=== PATIENT | male | born 1960 | race Caucasian/White ===

== ENCOUNTER 2016-11-18 09:32 | Emergency (ER) | payer OTHER ==
[~2016-11-18] VITALS: Ht 177.8 cm; Wt 99.8 kg
[~2016-11-18 09:32] MED LIST: ACET-1574 PO; ARMO150T2 PO; ASPI-482 PO; AZIT500T2 PO; CALC625T7 PO; CYCL10TA2 PO; DULO60CA6 PO; ESZO3TAB9 PO; EZET1TAB5 PO; FLUT16SP2 NS; GABA800T2 PO; GUAI1TBM PO; HYDR-2762 PO; LEVO250T25 PO; LISD70CA3 PO; MELA3TAB PO; METF500T4 PO; MONT10TA6 PO; MULT-18 PO; NAPR250T2 PO; OMEG500C3 PO; OMEP20TA PO; POLY17PO5 PO; PSYL3.4P PO; SUCR1TAB29 PO; TRAZ50TA15 PO; VENTOLIN HFA18 GM IH; VENTOLIN HFA18 GM INH; ZOLP10TA PO; [UNRECOGNIZED DRUG - CODE] PO
--- NOTE | 2016-11-18 09:54 | EKG ---
[facility] [address] [place] [address] Test Date: 2016-11-18 Test Time: 09:44:57 Pat Name: MYLA RAMIREZ Department: Room: Gender: M Public Health Inspector: : 1960 Requested By: Grecia GUERRERO Order Number: [id number] Reading MD: Ana Davalos Measurements Intervals [place] Rate: 85 P: -13 NE: 184 QRS: -20 QRSD: 90 T: 31 QT: 342 QTc: 407 Interpretive Statements SINUS RHYTHM LEFTWARD AXIS RI6.01 Unconfirmed report Compared to ECG 06/24/2016 11:44:48 Left-axis deviation now present Electronically Signed On 11-22-2016 19:46:25 CASH SURRENDER CALCULATOR by Ana Davalos
[2016-11-18] MEDS ORDERED: KETOROLAC 15 MG/ML VIAL. IV ONE (10:00)
[2016-11-18 10:11] LABS: CALCIUM 8.8 mg/dL (8.5-10.1); CREATININE 1.2 mg/dL (0.7-1.3); GFR 62.2; POTASSIUM 3.8 mmol/L (3.5-5.1)
--- NOTE | 2016-11-18 10:17 | RAD ---
Chest, 2 views, 11/18/2016: History: Cough, chest pain Comparison is made to a study from 06/24/2016. The heart size and pulmonary vascularity are normal. No pulmonary infiltrates are seen. There is no evidence of pleural fluid. IMPRESSION: No acute cardiopulmonary abnormality is detected.
[2016-11-18 10:31] VITALS: BP 123/76
--- NOTE | 2016-11-18 10:37 | PHYS DOC ---
Past Medical History Past Medical History: Diabetes-Type II, Diverticulosis, GERD, High Cholesterol , Other Additional Past Medical Histor: sinus, poss. adrenal problem, neuropathy; gastroparesis; hirschsprungs Past Surgical History: Other Additional Past Surgical Histo: ACL repair Rt knee, lumbar and cervical fusions , megacolon repair Alcohol Use: Occasionally Drug Use: None Adult General Chief Complaint Chief Complaint: CHEST PAIN HPI HPI Patient is a 56 year old male who presents with left upper anterior chest pain that has developed over the past week. Pain is constant over the past 2 days. Has pain with cough and breathing. Has rhinorrhea, nasal congestion, chills, and dry cough for the past week. He denies measured fever, diarrhea, current n/v , headache, sore throat, diaphoresis, exertional symptoms, orthopnea, leg pain or swelling, hemoptysis. Review of Systems Review of Systems Constitutional: Denies measured fever [] Eyes: Denies change in visual acuity, redness, or eye pain [] HENT: Denies nasal congestion or sore throat [] Respiratory: Denies shortness of breath [] Cardiovascular: No additional information not addressed in HPI [] GI: Denies abdominal pain, nausea, vomiting, bloody stools or diarrhea [] : Denies dysuria or hematuria [] Musculoskeletal: Denies back pain or joint pain [] Integument: Denies rash or skin lesions [] Neurologic: Denies headache, focal weakness or sensory changes [] Endocrine: Denies polyuria or polydipsia [] Current Medications Current Medications Current Medications Medications (Trade) Dose Ordered Sig/Tremaine Start Time Stop Time Status Last Admin Dose Admin Ketorolac Tromethamine (Toradol) 15 mg 1X ONCE 11/18/16 10:00 11/18/16 10:01 DC 11/18/16 10:34 15 MG Allergies Allergies Allergies Coded Allergies Type Severity Reaction Last Updated Verified No Known Drug Allergies 08/31/14 No Physical Exam Physical Exam Constitutional: Well developed, well nourished, no acute distress, non-toxic appearance. [] HENT: Normocephalic, atraumatic, bilateral external ears normal, oropharynx moist, nose normal. [] Eyes: PERRLA, EOMI, conjunctiva normal, no discharge. [] Neck: Normal range of motion, supple, no stridor. [] Cardiovascular:Heart rate regular rhythm [] Lungs & Thorax: Bilateral breath sounds clear to auscultation. Left upper chest wall tenderness duplicating symptoms without visual or palpable abnormality [] Abdomen: Bowel sounds normal, soft, no tenderness. [] Skin: Warm, dry, no erythema, no rash. [] Back: Normal ROM. [] Extremities: ROM intact, no edema. [] Neurologic: Alert and oriented X 3, normal motor function, normal sensory function, no focal deficits noted. [] Psychologic: Affect normal, judgement normal, mood normal. [] Current Patient Data Vital Signs Vital Signs Date Time Temp Pulse Resp B/P Pulse Ox O2 Delivery O2 Flow Rate FiO2 11/18/16 10:31 82 18 123/76 93 Room Air 11/18/16 09:40 98.3 98.3 Lab Values Laboratory Tests Test 11/18/16 09:50 Sodium Level 142mmol/L (136-145) Potassium Level 3.8mmol/L (3.5-5.1) Chloride Level 105mmol/L (98-107) Carbon Dioxide Level 27mmol/L (21-32) Anion Gap 10 (6-14) Blood Urea Nitrogen 15mg/dL (8-26) Creatinine 1.2mg/dL (0.7-1.3) Estimated GFR (Cockcroft-Gault) 62.2 Glucose Level 122mg/dL (70-99) H Calcium Level 8.8mg/dL (8.5-10.1) Troponin I Quantitative < 0.017ng/mL (0.000-0.055) Laboratory Tests 11/18/16 09:50 EKG EKG EKG as interpreted by me as normal sinus rhythm, rate 85, no ST-T changes, normal intervals, no ectopy Radiology/Procedures Radiology/Procedures Chest xray as interpreted by me with no acute cardiopulmonary disease process Course & Med Decision Making Course & Med Decision Making Pertinent Labs and Imaging studies reviewed. (See chart for details) Workup is unremarkable. Suspect MSK/chest wall pain in the setting of URI. Return precautions given. He understands and agrees with plan. Dragon Disclaimer Dragon Disclaimer This electronic medical record was generated, in whole or in part, using a voice recognition dictation system. Departure Departure Impression: Primary Impression: Chest pain Additional Impression: Upper respiratory infection Disposition: 01 HOME, SELF-CARE Condition: STABLE Referrals: EDIN MORALES (PCP) Patient Instructions: Upper Respiratory Infection, Adult, Neek-pm-Tmkg Additional Instructions: Take ibuprofen to help with chest pain. Use honey to help with cough. Follow-up with your primary care doctor. Return for any concerns. Problem Qualifiers Primary Impression: Chest pain Chest pain type: other chest pain Qualified Code: R07.89 - Other chest pain Additional Impression: Upper respiratory infection URI type: unspecified viral URI Qualified Code: J06.9 - Acute upper respiratory infection, unspecified Grecia GUERRERO MD Nov 18, 2016 10:37
== END 2016-11-18 10:54 | disposition home or self-care (01) ==
LOC: ER 09:32
DX: R07.89 Other chest pain (principal); J06.9 Acute upper respiratory infection, unspecified; E78.00 Pure hypercholesterolemia, unspecified; E11.43 Type 2 diabetes mellitus with diabetic autonomic (poly)neuropathy; K31.84 Gastroparesis; K21.9 Gastro-esophageal reflux disease without esophagitis; Z87.19 Personal history of other diseases of the digestive system; Z98.890 Other specified postprocedural states
CPT/HCPCS: 36415; 71020; 80048; 84484; 93005; 96374; 99285; J1885

== ENCOUNTER → 2017-02-05 | Outpatient (CLI) | payer OTHER ==
[~2017-02-05] MED LIST changes: +POLY17PO29 PO; -POLY17PO5 PO
--- NOTE | 2017-02-05 13:30 | KCIC ---
PROCEDURE Renal ultrasound HISTORY Stage III chronic renal disease. Bilateral flank pain, right greater than left. COMPARISON None FINDINGS Aorta and inferior vena cava are not visualized due to overlying bowel gas. Right kidney measures 11.6 cm longitudinal. Exophytic midpole cyst measures 3.5 cm diameter. Additional cyst near the renal pelvis measures 2.5 cm long axis. Left kidney measures 11.3 cm longitudinal. Cyst identified at the midpole, measures 20 mm. No evidence of hydronephrosis. Limited urinary bladder evaluation, as patient recently voided. IMPRESSION 1. Bilateral renal cysts. 2. No evidence of hydronephrosis. Electronically signed by: Breezy Lund MD (February 05, 2017 13:29:27)
== END | disposition home or self-care (01) ==
LOC: KCIC US 09:29
PROVIDERS: ATTEND Nurse Practitioner
DX: N18.3 Chronic kidney disease, stage 3 (moderate) (principal); R10.9 Unspecified abdominal pain; N28.1 Cyst of kidney, acquired
CPT/HCPCS: 76770

== ENCOUNTER → 2017-05-22 | Outpatient (CLI) | payer OTHER ==
[~2017-05-22] MED LIST changes: -ARMO150T2 PO; +ARMO150T4 PO; +ESZO3TAB28 PO; -ESZO3TAB9 PO; +EZET1TAB35 PO; -EZET1TAB5 PO; -LISD70CA3 PO; +LISD70CA5 PO; -MELA3TAB PO; +MELA3TAB2 PO; -OMEP20TA PO; +OMEP20TA8 PO; -SUCR1TAB29 PO; +SUCR1TAB35 PO
--- NOTE | 2017-05-22 16:29 | KCIC ---
ABDOMEN WO CONTRAST Clinical Indication: Generalized abdominal pain intermittently since 05/02/2017. Comparison: Renal ultrasound February 05, 2017. CT abdomen and pelvis with contrast, December 26, 2015, [facility]. TECHNIQUE: Routine multiplanar multiple pulse sequence images of the abdomen are obtained from IV contrast not administered. Findings: 2 small hepatic cysts are seen, segments 2/3 and 5/6. Multiple other tiny cysts are identified in the liver, mainly in the left hepatic lobe. In and out of phase images are unremarkable. No hydronephrosis. Bilateral perinephric stranding can be a normal variant in a patient of this age or due to renal insufficiency. Stable right renal cysts. There is a exophytic left interpolar renal cyst measuring 1.2 cm that is T1 and T2 hyperintense. The cyst is stable in size compared to prior CT. This cyst was identified on ultrasound. Given signal characteristics this cyst may be hemorrhagic or contain proteinaceous material. Small cortical cyst lower pole of left kidney. Spleen size normal. Gallbladder and adrenal glands are normal. Pancreas homogeneous. Biliary tree and pancreatic duct are normal in caliber. No upper abdominal ascites. No evidence of bowel obstruction. IMPRESSION: 1. No MR explanation for patient's symptoms. 2. Hepatic cysts. 3. Bilateral renal cysts. Electronically signed by: Lazaro Figueroa MD (05/22/2017 4:26 PM) [id number]
== END | disposition home or self-care (01) ==
LOC: KCIC MRI 15:19
PROVIDERS: ATTEND Nurse Practitioner
DX: N28.1 Cyst of kidney, acquired (principal); K76.89 Other specified diseases of liver
CPT/HCPCS: 74181

== ENCOUNTER → 2020-06-21 | Outpatient (CLI) | payer OTHER ==
[~2020-06-21] MED LIST changes: -ACET-1574 PO; +ACET-1871 PO; -GABA800T2 PO; +GABA800T5 PO; -HYDR-2762 PO; +HYDR-2765 PO; +LINZESS145 MCG PO; -MELA3TAB2 PO; +MELA3TAB4 PO; +METF500T16 PO; -METF500T4 PO; +MONT10TA49 PO; -MONT10TA6 PO; -NAPR250T2 PO; +NAPR250T6 PO; +SUVO10TA PO; +TRAZ-118 PO; -TRAZ50TA15 PO
== END | disposition home or self-care (01) ==
LOC: LAB 15:26
PROVIDERS: ATTEND Internal Medicine Gastroenterology
DX: Z01.812 Encounter for preprocedural laboratory examination (principal); Z20.828 Contact with and (suspected) exposure to other viral communicable diseases
CPT/HCPCS: U0003-CS

== ENCOUNTER → 2020-06-25 | Day surgery (SDC) | payer OTHER ==
[~2020-06-25] MED LIST changes: +HYDROmorphone 2 MG/ML VIAL IV PRN; +IV RINGERS,LACTATED 1000ML 1,000 ML IV SCH; +LIDOCAINE 1% PF 2 ML VIAL. ID PRN; +LIDOCAINE 2% PF 5 ML VIAL. ONE; +MORPHINE SULFATE 2 MG/ML VIAL. IV PRN; +ONDANSETRON PF 4 MG/2 ML VIAL. IV PRN; +PROCHLORPERAZINE 10 MG/2 ML VIAL. IV PRN; +PROPOFOL 10 MG/ML (20ML) VIAL. IV ONE; +fentaNYL PF VIAL 100 MCG/2 ML VIAL IV PRN
--- NOTE | 2020-06-25 12:55 | PDOC1 ---
History and Physical Date of Admission Date of Admission DATE: 06/25/20 TIME: 12:47 Source Source: Chart review, Patient History of Present Illness History of Present Illness 60 y/o male here for screening colonoscopy. Has FH of polyps in brother. Chronic issues with constipation on Linzess. H/o Hirschsprung's as child apparently with resection of involved segment/anastomosis. Last attempted colonoscopy 2014, but historically poor prep. No wt. loss, N or V. H/o GERD/gastroparesis on PPI and metoclopramide. Past Medical History Cardiovascular: HTN, Hyperlipidemia Pulmonary: Other (sleep apnea) Musculoskeletal: low back pain Endocrine: Diabetes Past Surgical History Past Surgical History: Colon Resection (for the Hirschsprung's) Family History Family History: No Significant Social History ALCOHOL: none Drugs: None Current Medications Current Medications Current Medications Ondansetron HCl (Zofran) 4 mg PRN Q6HRS PRN IV NAUSEA/VOMITING; Start 06/25/20 at 07:00; Stop 06/26/20 at 06:59 Fentanyl Citrate (Fentanyl 2ml Vial) 25 mcg PRN Q5MIN PRN IV MILD PAIN 1-3; Start 06/25/20 at 07:00; Stop 06/26/20 at 06:59 Fentanyl Citrate (Fentanyl 2ml Vial) 50 mcg PRN Q5MIN PRN IV MODERATE TO SEVERE PAIN; Start 06/25/20 at 07:00; Stop 06/26/20 at 06:59 Morphine Sulfate (Morphine Sulfate) 1 mg PRN Q10MIN PRN IV SEVERE PAIN 7-10; Start 06/25/20 at 07:00; Stop 06/26/20 at 06:59 Ringer's Solution 1,000 ml @ 30 mls/hr Q24H IV Last administered on 06/25/20at 12:37; Start 06/25/20 at 07:00; Stop 06/25/20 at 18:59 Lidocaine HCl (Xylocaine-Mpf 1% 2ml Vial) 2 ml PRN 1X PRN ID PRIOR TO IV START; Start 06/25/20 at 07:00; Stop 06/26/20 at 06:59 Hydromorphone HCl (Dilaudid) 0.5 mg PRN Q10MIN PRN IV SEV PAIN, Second choice; Start 06/25/20 at 07:00; Stop 06/26/20 at 06:59 Prochlorperazine Edisylate (Compazine) 5 mg PACU PRN PRN IV NAUSEA, MRX1; Start 06/25/20 at 07:00; Stop 06/26/20 at 06:59 Active Scripts Active Reported Cyclobenzaprine Hcl 10 Mg Tablet 1 Tab PO DAILY Miralax (Polyethylene Glycol 3350) 17 Gm Powd.pack 1 Packet PO DAILY 2 Days dissolve in water Vyvanse (Lisdexamfetamine Dimesylate) 70 Mg Capsule 1 Cap PO DAILYWBKFT MDD 1 Capsule(s) 5 Days Belsomra (Suvorexant) 10 Mg Tablet 10 Mg PO QHS Linzess (Linaclotide) 145 Mcg Capsule 145 Mcg PO DAILY07 Gabapentin 800 Mg Tablet 800 Mg PO DAILY Naproxen 250 Mg Tablet 250 Mg PO PRN DAILY PRN Not taken while in hosp. may resume at home as directed as needed. Singulair Tablet (Montelukast Sodium) 10 Mg Tablet 10 Mg PO DAILY Last dose given: 08-31-14 9:00 p.m. Next dose due: tonight Flonase (Fluticasone Propionate) 16 Gm [place].susp 2 Puff NS BID Last dose given: 9:00 a.m. Next dose due: cirilo Fish Oil ([place]-3 Fatty Acids) 500 Mg Capsule 1,000 Mg PO BID Not taken while in hosp. May resume at home as directed Daily Vitamin (Multivitamin) 1 Each Tablet 1 Each PO DAILY Last dose given: 9:00 a.m. Next dose due: 09-02-14 9:00 a.m. Aspir 81 (Aspirin) 81 Mg Tablet.dr 81 Mg PO DAILY Last dose given: 8:30 a.m. Next dose due: 09-02-14 8:30 a.m. Vytorin 10-40 Mg Tablet (Ezetimibe/Simvastatin) 1 Each Tablet 1 Each PO DAILY Last dose given: 08-31-14 9:00 p.m. Next dose due: tonight Allergies Allergies: Coded Allergies: No Known Drug Allergies (Unverified , 06/25/20) ROS Review of System Otherwise negative. Physical Exam General: Alert, Oriented X3, Cooperative, No acute distress Lungs: Clear to auscultation Heart: S1S2, RRR, no gallops, no murmurs Abdomen: Normal bowel sounds, Soft, No tenderness, No hepatosplenomegaly, No masses Rectal Exam: deferred (to procedure) Extremities: No cyanosis, No edema Skin: No significant lesion Neuro: Normal gait, Normal speech, Strength at 5/5 X4 ext, Normal tone, Sensation intact, Cranial nerves 3-12 NL, Reflexes 2+ Psych/Mental Status: Mental status NL, Mood NL Vitals Vitals Vital Signs Date Time Temp Pulse Resp B/P (MAP) Pulse Ox O2 Delivery O2 Flow Rate FiO2 06/25/20 12:29 98.6 55 20 94 98.6 VTE Prophylaxis Ordered VTE Prophylaxis Devices: No VTE Pharmacological Prophylaxi: No Assessment/Plan Assessment/Plan IMP: FH polyps, last exam with poor prep. PLAN: Colonoscopy. DEDRA COLLIER MD Jun 25, 2020 12:55
--- NOTE | 2020-06-25 13:30 | PDOC4 ---
PROCEDURE Procedure Colonoscopy/polypectomy Indication: FH polyps Meds: per anesthesia Findings: TED--normal --'Scope advanced to cecum. Mucosa normal. Scattered stool, but adequate prep. Occasional diverticulum seen. 8-10mm pedunculated polyp in transverse, cold snared. Otherwise normal exam. Any. well. IMP: Polyp Diverticulosis REC: Resume meds, diet. Await histology. F/u in 2 weeks. Repeat exam in 5 years. DEDRA COLLIER MD Jun 25, 2020 13:29
[2020-06-25 13:55] VITALS: BP 134/74
--- NOTE | 2020-06-26 16:06 | PATHOLOGY ---
[facility] Accession Number: [id number] . 01 Material submitted: . colon - TRANSVERSE COLON POLYP. Modifiers: transverse . 01 Clinical history: . SCREENING . 02 Diagnosis: Colon biopsies, transverse colon polyp: - Tubular adenoma. (JPM:[facility]; 06/26/2020) S 06/26/2020 1357 Local . 02 Comment: There is no high grade dysplasia or evidence of malignancy. (JPM:[facility]; 06/26/2020) . 02 Electronically signed: . Mohan Delgado MD, Pathologist NPI- [id number] . 01 Gross description: . The specimen is received in formalin, labeled "Ar [place], transverse colon polyp". Received are multiple segments of pale bustos soft tissue ranging in size from 0.3 to 0.6 cm in maximum dimensions. The specimen is submitted entirely in cassette A1. ([facility]; 06/25/2020) QA/[facility] 06/25/2020 1755 Local . 02 Pathologist provided ICD-10: D12.3 . 02 CPT . 805811 Specimen Comment: A courtesy copy of this report has been sent to [phone], [phone] Specimen Comment: [id number] Specimen Comment: Report sent to / DR MORALES Performed at: 01 [facility] [address], [place] [id number] MD Ramo Salinas MD Phone: [phone] Performed at: 02 [facility] [address] [place], [place] [id number] MD Mohan Delgado MD Phone: [phone]
== END | disposition home or self-care (01) ==
LOC: ENDOS 12:01
PROVIDERS: ATTEND Internal Medicine Gastroenterology
DX: Z12.11 Encounter for screening for malignant neoplasm of colon (principal); K21.9 Gastro-esophageal reflux disease without esophagitis; E78.5 Hyperlipidemia, unspecified; G47.30 Sleep apnea, unspecified; I12.9 Hypertensive chronic kidney disease with stage 1 through stage 4 chronic kidney disease, or unspecified chronic kidney disease; N18.9 Chronic kidney disease, unspecified; E11.22 Type 2 diabetes mellitus with diabetic chronic kidney disease; D12.3 Benign neoplasm of transverse colon; Z83.71 Family history of colonic polyps; Z98.890 Other specified postprocedural states; Z79.899 Other long term (current) drug therapy
CPT/HCPCS: 45385; 88305; J2704